=== PATIENT | female | born 1965 | race American Indian/Alaskan Native ===

== ENCOUNTER 2018-04-02 09:18 | Outpatient (CLI) | payer OTHER ==
[2018-04-02] MEDS ORDERED: PROVENTIL IH ONE (09:56)
== END 2018-04-02 09:19 | disposition home or self-care (01) ==
LOC: PF 09:18
PROVIDERS: ATTEND Internal Medicine
DX: Z02.71 Encounter for disability determination (principal); F32.9 Major depressive disorder, single episode, unspecified; F41.9 Anxiety disorder, unspecified
CPT/HCPCS: 94060; 94640

== ENCOUNTER 2018-05-08 11:16 | Outpatient (CLI) | payer OTHER ==
--- NOTE | 2018-05-08 12:06 | XRay Report ---
BILATERAL KNEES, 2 VIEWS History: Pain, disability exam, bipolar depression. Findings: Normal bone mineralization. The bony structures and joint space are within normal limits. Normal soft tissues. Impression: Normal bilateral knees.
== END 2018-05-08 11:17 | disposition home or self-care (01) ==
LOC: XRAY 11:16
PROVIDERS: ATTEND Internal Medicine
DX: Z02.71 Encounter for disability determination (principal); M25.562 Pain in left knee; M25.561 Pain in right knee; F20.9 Schizophrenia, unspecified; F31.9 Bipolar disorder, unspecified; G56.00 Carpal tunnel syndrome, unspecified upper limb; M54.9 Dorsalgia, unspecified; F41.9 Anxiety disorder, unspecified

== ENCOUNTER 2018-12-11 10:04 | Outpatient (CLI) | payer OTHER ==
--- NOTE | 2018-12-11 10:58 | XRay Report ---
AP AND LATERAL LUMBOSACRAL SPINE: History: Low back pain, disability exam Normal bone mineralization. The vertebral bodies are well mineralized and normal in alignment. No evidence for fracture or compression deformity. No bone lesion. [id number] disc space narrowing is identified at L5-S1. The remaining disc spaces are within normal limits. There is mild diffuse facet arthropathy. The sacrum and SI joints are unremarkable. IMPRESSION: Mild lumbar spondylosis as outlined above.
== END 2018-12-11 10:05 | disposition home or self-care (01) ==
LOC: XRAY 10:04
PROVIDERS: ATTEND Internal Medicine
DX: Z02.71 Encounter for disability determination (principal); M47.816 Spondylosis without myelopathy or radiculopathy, lumbar region
CPT/HCPCS: 72100